=== PATIENT | male | born 1995 | race Caucasian/White ===

== ENCOUNTER 2018-06-24 22:35 | Emergency (ER) | payer SELFPAY ==
[2018-06-24] MEDS ORDERED: ONDANSETRON 4 MG/2 ML VIAL IVP ONE (23:07)
[2018-06-24] MEDS ORDERED: NS 1,000 ML IV ONE (23:08)
[2018-06-24 23:22] LABS: PLATELET COUNT 306 10^3/uL (150-400)
--- NOTE | 2018-06-24 23:32 | EDPHY ---
H & P Time Seen by Provider: 06/24/18 22:50 HPI/ROS: CHIEF COMPLAINT: Vomiting HISTORY OF PRESENT ILLNESS: 23-year-old male presents to the emergency department with multiple episodes of nausea and vomiting that began today. The patient denies diarrhea. He denies any abdominal pain associated with this. He has vomited at least 6 times this afternoon. He had his wisdom teeth out earlier last week and has been taking penicillin as prescribed. He was unsure if this was reaction to the antibiotic. He has a history of anxiety and feels extremely anxious. Denies alcohol or other substance abuse. He does smoke marijuana. Denies pain in his chest or difficulty breathing. REVIEW OF SYSTEMS: Constitutional: No fever, no chills. Eyes: No double or blurry vision. ENT: No sore throat. Respiratory: No cough, no shortness of breath. Cardiac: No chest pain. Gastrointestinal: Vomiting as above. No diarrhea or abdominal pain. Genitourinary: No dysuria. Musculoskeletal: No neck or back pain. Skin: No rashes. Neurological: No headache. Past Medical/Surgical History: Anxiety, recent wisdom tooth extraction Social History: Single from [place] Smoking Status: Never smoked Physical Exam: General Appearance: Alert, very anxious. Diaphoretic. Mother at bedside Eyes: Pupils equal and round. Extraocular motions are all intact. ENT: Mouth: Mucous membranes moist. Right upper teeth recent extraction with no evidence of bleeding, purulent drainage or evidence of abscess. Respiratory: No wheezing, rhonchi, or rales, lungs are clear to auscultation. Cardiovascular: Regular rate and rhythm. Tachycardic. Gastrointestinal: Abdomen is soft and nontender, no masses, no rebound or guarding, bowel sounds normal. Neurological: Alert and oriented x 3, cranial nerves II through XII grossly intact Skin: Warm and dry, no rashes. Musculoskeletal: Nontender to palpate along the cervical, thoracic or lumbar spine. Neck is supple. Extremities: Full range of motion and no peripheral edema. Psychiatric: Patient is oriented X 3, there is no agitation. Constitutional: Initial Vital Signs Temperature (C) 37.2 C 06/24/18 22:43 Heart Rate 125 H 06/24/18 22:43 Respiratory Rate 18 06/24/18 22:43 Blood Pressure 144/105 H 06/24/18 22:43 O2 Sat (%) 99 06/24/18 22:43 O2 Delivery Mode Room Air Allergies/Adverse Reactions: ibuprofen Allergy (Severe, Verified 06/24/18 22:44) Home Medications: Medication Instructions Recorded Penicillin VK 06/24/18 Medical Decision Making ED Course/Re-evaluation: 23-year-old male presents to the emergency department with multiple episodes of nausea and vomiting. Patient's abdominal exam is benign. He has no pain with palpation. I do not think CT imaging is indicated. Lactate is normal at 1.2. Patient is receiving IV in your normal saline as well as IV Zofran. He declined IV Ativan. He is extremely anxious. 12:05 a.m.: The patient is feeling much better. He is no longer feeling anxious. Heart rate of 95. He has no abdominal pain. He is drinking water and feels comfortable being discharged home. [place] [address] with a left shift. He is afebrile. I feel that this is likely from demargination and vomiting. I did encourage him to call his dentist and he will stop his penicillin for now. He does not have any evidence of oral infection in his mouth. Differential Diagnosis: Including but not limited to viral gastroenteritis, dehydration, electrolyte abnormality, sepsis - Data Points Laboratory Results: Laboratory Results 06/24/18 23:04 06/24/18 23:04 06/24/18 06/24/18 06/24/18 23:45 23:04 23:04 WBC 17.00 10^3/uL H 10^3/uL (3.80-9.50) RBC 5.31 10^6/uL 10^6/uL (4.40-6.38) Hgb 16.1 g/dL g/dL (13.7-17.5) Hct 45.9 % % (40.0-51.0) MCV 86.4 fL fL (81.5-99.8) MCH 30.3 pg pg (27.9-34.1) MCHC 35.1 g/dL g/dL (32.4-36.7) RDW 12.4 % % (11.5-15.2) Plt Count 306 10^3/uL 10^3/uL (150-400) MPV 9.9 fL fL (8.7-11.7) Neut % (Auto) 84.7 % H % (39.3-74.2) Lymph % (Auto) 7.2 % L % (15.0-45.0) Tyrrell % (Auto) 7.0 % % (4.5-13.0) Eos % (Auto) 0.3 % L % (0.6-7.6) Baso % (Auto) 0.2 % L % (0.3-1.7) Nucleat RBC Rel Count 0.0 % % (0.0-0.2) Absolute Neuts (auto) 14.39 10^3/uL H 10^3/uL (1.70-6.50) Absolute Lymphs (auto) 1.23 10^3/uL 10^3/uL (1.00-3.00) Absolute Monos (auto) 1.19 10^3/uL H 10^3/uL (0.30-0.80) Absolute Eos (auto) 0.05 10^3/uL 10^3/uL (0.03-0.40) Absolute Basos (auto) 0.04 10^3/uL 10^3/uL (0.02-0.10) Absolute Nucleated RBC 0.00 10^3/uL 10^3/uL (0-0.01) Immature Gran % 0.6 % % (0.0-1.1) Immature Gran # 0.10 10^3/uL 10^3/uL (0.00-0.10) VBG Lactic Acid 1.2 mmol/L mmol/L (0.7-2.1) Sodium 140 mEq/L mEq/L (135-145) Potassium 3.9 mEq/L mEq/L (3.3-5.0) Chloride 104 mEq/L mEq/L (97-110) Carbon Dioxide 23 mEq/l mEq/l (22-31) Anion Gap 13 mEq/L mEq/L (8-16) BUN 16 mg/dL mg/dL (7-23) Creatinine 0.9 mg/dL mg/dL (0.7-1.3) Estimated GFR > 60 Glucose 116 mg/dL H mg/dL (70-100) Calcium 10.0 mg/dL mg/dL (8.5-10.4) Medications Given: Discontinued Medications Sodium Chloride (Ns) 1,000 mls @ 0 mls/hr IV ONCE ONE; Wide Open PRN Reason: Protocol Stop: 06/24/18 23:09 Last Admin: 06/24/18 23:12 Dose: 1,000 mls Ondansetron HCl (Zofran) 4 mg IVP EDNOW ONE Stop: 06/24/18 23:08 Last Admin: 06/24/18 23:13 Dose: 4 mg Departure - Departure Disposition: Home, Routine, Self-Care Clinical Impression: Vomiting Qualifiers: Vomiting type: unspecified Vomiting Intractability: non-intractable Nausea presence: with nausea Qualified Code(s): R11.2 - Nausea with vomiting, unspecified Condition: Good Instructions: Acute Nausea and Vomiting (ED) Additional Instructions: Clear liquids and slowly advance diet as tolerated. Abdominal Pain: Return to the Emergency Department immediately for any abdominal pain, fever, vomiting, or if not completely better in 8-12 hours. Call your dentist tomorrow. Referrals: Jillian Linda DO [Doctor of Osteopathy] - 2-3 days, call for appt. (Primary care provider institutional aide)
[2018-06-25] MEDS ORDERED: ONDANSETRON 4MG PREPACK#2 BTL TAKEHOME ONE (00:31)
[2018-06-25 00:46] VITALS: BP 126/80
== END 2018-06-25 00:43 | disposition home or self-care (01) ==
DX: R11.2 Nausea with vomiting, unspecified (principal); E86.9 Volume depletion, unspecified; Z98.818 Other dental procedure status
CPT/HCPCS: 96374; J2405